=== PATIENT | male | born 1955 | race Two or more races ===

== ENCOUNTER 2017-09-27 13:47 | Emergency (ER) | payer BC | END 2017-09-27 14:58 | disposition home or self-care (01) | LOC: FTE 13:47 | DX: H11.31 Conjunctival hemorrhage, right eye (principal); Z79.82 Long term (current) use of aspirin; Z87.891 Personal history of nicotine dependence; Z95.810 Presence of automatic (implantable) cardiac defibrillator; Z98.61 Coronary angioplasty status | CPT/HCPCS: 99282 ==